=== PATIENT | female | born 1970 | race Caucasian/White ===

== ENCOUNTER 2018-10-03 15:11 | Emergency (ER) | payer BC, OTHER ==
[~2018-10-03] VITALS: Ht 165.1 cm; Wt 90.7 kg
--- OUTSIDE RECORDS SUMMARY | 2018-10-03 15:16 | XMS REPORT ---
Author Author GURU OWEN Organization [facility] Address [address] [place] [address] Care Team Providers Care Operations Staff Specialist Security Name Role Phone GURU OWEN Unavailable PROBLEMS Type Condition ICD9-CM Code [id number] Code Onset Dates Condition Status SNOMED Code Problem Mood disorder F39 Active 35762152 Problem Non morbid obesity due to excess calories E66.09 Active 043569536 ALLERGIES No Information ENCOUNTERS Encounter Location Date Diagnosis [facility] [id number] [place] [address] Nov [facility] [address] [place] [address]68- 4220 Jul, Non morbid obesity due to excess calories E66.09 [facility] [id number] [place] [address] 54462- 8833 May, Non morbid obesity due to excess calories E66.09 [place] [id number] [place] [address] 29744- 3887 Mar, Non morbid obesity due to excess calories E66.09 [facility] [address] [place] [address] 65760- 7890 February, Non morbid obesity due to excess calories E66.09 and Mood disorder F39 [facility] [address] [place] [address] 10945- 7209 February, Non morbid obesity due to excess calories E66.09 [facility] [id number] [place] [address] 72799- 4963 Jan, Non morbid obesity due to excess calories E66.09 [facility] [address] [place] [address]205[address] 0294 Dec, [place] [id number] [address] Oct, [facility] [id number] [place] [address] 56695- 1451 Aug, [facility] [address] [address] 30 Jun, 2016 ADHD (attention deficit hyperactivity disorder), inattentive type F90.0 [facility] [id number] [place] [phone] Jun, Dental caries K02.9 [facility] [id number] [place] [address] [phone] May, Dental examination Z01.20 [facility] [id number] [place] [address] 10531- 8315 May, ADHD (attention deficit hyperactivity disorder), inattentive type F90.0 [facility] [id number] [place] [address] [phone] Apr, Dental examination Z01.20 [facility] [id number] [place] [address] 38891- 6270 Apr, ADHD (attention deficit hyperactivity disorder), inattentive type F90.0 and Non morbid obesity due to excess calories E66.09 [facility] [address] [address] Apr, [facility] [address] [id number] Mar, Dental examination Z01.20 [facility] [address], [place] [address] Mar, Dental examination Z01.20 [facility] [address] [address] Mar, Attention deficit hyperactivity disorder (ADHD), predominantly inattentive type F90.0 [facility] [address], [place] [address] Mar, [facility] [id number], [place] [address] 2546 Sep, [facility] [address], [place] [address] Sep, [facility] [address] [address] Aug, [facility] [address], [place] [address] Aug, [facility] [address], [place] [address] Aug, [facility] [address] [place] [address] 43470- 2546 Aug, [facility] [address], [place] [address] May, [facility] [address] [address] 2546 May, [facility] [address] [id number], [place] [address] Apr, IMMUNIZATIONS No Known Immunizations SOCIAL HISTORY Never Assessed REASON FOR VISIT Controlled Med Refill PLAN OF CARE VITAL SIGNS MEDICATIONS Medication Instructions Dosage Frequency Start Date End Date Duration Status Phentermine HCl 37.5 MG Orally Once a day 1 tablet 24h Jan, 28 days Active RESULTS No Results PROCEDURES No Known procedures INSTRUCTIONS MEDICATIONS ADMINISTERED No Known Medications MEDICAL (GENERAL) HISTORY Type Description Date Medical History attention deficit hyperactivity disorder Surgical History tonsillectomy age 12 Surgical History cholecystectomy 2006 Hospitalization History Hospitalization for surgery only
--- OUTSIDE RECORDS SUMMARY | 2018-10-03 15:16 | XMS REPORT ---
Author Author GURU OWEN Organization [facility] Address [address] [place] [address] Care Team Providers Care Fashion Director Party Plan Sales Name Role Phone GURU OWEN Unavailable PROBLEMS Type Condition ICD9-CM Code [id number] Code Onset Dates Condition Status SNOMED Code Problem Mood disorder F39 Active 37869551 Problem Non morbid obesity due to excess calories E66.09 Active 515097066 ALLERGIES No Information ENCOUNTERS Encounter Location Date Diagnosis [facility] [address] [id number] [place] [address] Nov [facility] [id number] [place] [address] 99162- 6954 Jul, Non morbid obesity due to excess calories E66.09 [facility] [id number] [place] [address] 89399- 0827 May, Non morbid obesity due to excess calories E66.09 [place] [id number] [place] [address] 73381- 6190 Mar, Non morbid obesity due to excess calories E66.09 [facility] [address] [place] [address] 11144- 4626 February, Non morbid obesity due to excess calories E66.09 and Mood disorder F39 [facility] [address] [place] [address] 98284- 8025 February, Non morbid obesity due to excess calories E66.09 [facility] [id number] [place] [address] 74906- 6158 Jan, Non morbid obesity due to excess calories E66.09 [facility] [address] [place] [address] 98009- 3252 Dec, [place] [address], [place] [address] Oct, [facility] [id number] [place] [address] 68452- 1895 Aug, [facility] [address], [place] [address] 30 Jun, 2016 ADHD (attention deficit hyperactivity disorder), inattentive type F90.0 [facility] [id number] [place] [address] [phone] Jun, Dental caries K02.9 [facility] [id number] [place] [address] [phone] May, Dental examination Z01.20 [facility] [id number] [place] [address] 67296- 5990 May, ADHD (attention deficit hyperactivity disorder), inattentive type F90.0 [facility] [id number] [place] [address] [phone] Apr, Dental examination Z01.20 [facility] [id number] [place] [address] 49527- 8940 Apr, ADHD (attention deficit hyperactivity disorder), inattentive type F90.0 and Non morbid obesity due to excess calories E66.09 [facility] [address], [place] [address] Apr, [facility] [address] [phone] Mar, Dental examination Z01.20 [facility] [address], [place] [address] Mar, Dental examination Z01.20 [facility] [address], [place] [address] Mar, Attention deficit hyperactivity disorder (ADHD), predominantly inattentive type F90.0 [facility] [address], [place] [address] Mar, [facility] [id number] [address] 2546 Sep, [facility] [address], [place] [address] 2546 Sep, [facility] [address], [place] [address] 2546 Aug, [facility] [address], [place] [address]- 2546 Aug, [facility] [address], [place] [address] 2546 Aug, [facility] [address] [place] [address] 65633- 2546 Aug, [facility] [address], [place] [address]- 2456 May, [facility] [address], [place] [address]- 9926 May, [facility] [id number], [place] [address]- 0983 Apr, IMMUNIZATIONS No Known Immunizations SOCIAL HISTORY Never Assessed REASON FOR VISIT Controlled Med Refill PLAN OF CARE VITAL SIGNS MEDICATIONS Medication Instructions Dosage Frequency Start Date End Date Duration Status Phentermine HCl 37.5 MG Orally Once a day 1 tablet 24h Jan, Active RESULTS No Results PROCEDURES No Known procedures INSTRUCTIONS MEDICATIONS ADMINISTERED No Known Medications MEDICAL (GENERAL) HISTORY Type Description Date Medical History attention deficit hyperactivity disorder Surgical History tonsillectomy age 12 Surgical History cholecystectomy 2006 Hospitalization History Hospitalization for surgery only
--- OUTSIDE RECORDS SUMMARY | 2018-10-03 15:16 | XMS REPORT ---
Author Author CLAUDIA DONALDSON [facility] Address Unknown Care Team Providers Care Newsperson Name Role Phone CLAUDIA DONALDSON Unavailable PROBLEMS Type Condition ICD9-CM Code [id number] Code Onset Dates Condition Status SNOMED Code Problem VARICELLA DX V05.4 Active Problem Screening examination for pulmonary tuberculosis V74.1 Active 757143981 Problem STATE HEP A (ADULT) DX V05.3 Active 191196618 Assessment Dental caries K02.9 Jun, Active 65357052 Problem Need for prophylactic vaccination and inoculation, Influenza V04.81 Active 881301453 Problem MMR DX V06.4 Active ALLERGIES Substance Reaction Event Type Date Status Penicillin V Potassium Unknown Drug Allergy Jun, Active SOCIAL HISTORY No smoking Hx information available PLAN OF CARE VITAL SIGNS Blood pressure systolic 123 mmHg 2016-07-03 Blood pressure diastolic 84 mmHg 2016-07-03 MEDICATIONS Medication Instructions Dosage Frequency Start Date End Date Duration Status Adderall 30 MG Orally 2 times a day 1 tablet 12h 20 Mar, 2016 Active RESULTS No Results PROCEDURES Procedure Date Ordered Related Diagnosis Body Site EXTRAC ERUPTED TOOTH/EXPOSED ROOT Jul 03, 2016 IMMUNIZATIONS No Known Immunizations
--- OUTSIDE RECORDS SUMMARY | 2018-10-03 15:16 | XMS REPORT ---
Author Author CLAUDIA DONALDSON [facility] Address Unknown Care Team Providers Care Cream Cheese Maker Name Role Phone CLAUDIA DONALDSON Unavailable PROBLEMS Type Condition ICD9-CM Code VLG90-UT Code Onset Dates Condition Status SNOMED Code Problem VARICELLA DX V05.4 Active Problem Screening examination for pulmonary tuberculosis V74.1 Active 592076101 Problem STATE HEP A (ADULT) DX V05.3 Active 752424757 Assessment Dental examination Z01.20 May, Active 403820113 Problem Need for prophylactic vaccination and inoculation, Influenza V04.81 Active 026974838 Problem MMR DX V06.4 Active ALLERGIES Substance Reaction Event Type Date Status Penicillin V Potassium Unknown Drug Allergy May, Active SOCIAL HISTORY No smoking Hx information available PLAN OF CARE VITAL SIGNS Height 65 in 2016-06-21 Blood pressure systolic 112 mmHg 2016-06-21 Blood pressure diastolic 80 mmHg 2016-06-21 MEDICATIONS Medication Instructions Dosage Frequency Start Date End Date Duration Status Dupont 5-325 MG Orally every 6 hrs 1 tablet as needed 6h May, May, 4 days Active Adderall 30 MG Orally 2 times a day 1 tablet 12h 20 Mar, 2016 Active RESULTS No Results PROCEDURES Procedure Date Ordered Related Diagnosis Body Site PULPAL DEBRID PRIMARY Jun 21, 2016 IMMUNIZATIONS No Known Immunizations
--- OUTSIDE RECORDS SUMMARY | 2018-10-03 15:17 | XMS REPORT ---
Author Author GURU OWEN [facility] Address [address] [place] [address] Care Team Providers Care Lead Miner Name Role Phone UGRU OWEN Unavailable PROBLEMS Type Condition ICD9-CM Code [id number] Code Onset Dates Condition Status SNOMED Code Problem Mood disorder F39 Active 40344147 Problem Non morbid obesity due to excess calories E66.09 Active 827414708 ALLERGIES Substance Reaction Event Type Date Status Penicillin V Potassium Unknown Drug Allergy February, Active SOCIAL HISTORY Never Assessed PLAN OF CARE VITAL SIGNS Height 65 in 2017-03-20 Weight 219.8 lbs 2017-03-20 Temperature 97.8 degrees Fahrenheit 2017-03-20 Heart Rate 88 bpm 2017-03-20 Respiratory Rate 18 2017-03-20 BMI 36.57 kg/m2 2017-03-20 Blood pressure systolic 150 mmHg 2017-03-20 Blood pressure diastolic 90 mmHg 2017-03-20 MEDICATIONS Medication Instructions Dosage Frequency Start Date End Date Duration Status Phentermine HCl 37.5 MG Orally Once a day 1 tablet 24h Jan, Active Wellbutrin SR 150 MG Orally Twice a day 1 tablet 12h Jan, 30 day(s) Active RESULTS No Results PROCEDURES No Known procedures IMMUNIZATIONS No Known Immunizations MEDICAL (GENERAL) HISTORY Type Description Date Medical History attention deficit hyperactivity disorder Surgical History tonsillectomy age 12 Surgical History cholecystectomy 2006 Hospitalization History Hospitalization for surgery only
--- OUTSIDE RECORDS SUMMARY | 2018-10-03 15:17 | XMS REPORT ---
Author GURU Morales Organization [employer] Address Unknown Phone Unavailable Care Team Providers Care Lone Lead Lineman Name Role Phone GURU OWEN CP Unavailable Allergies No Known Allergies Problems Problem Type Condition Code Onset Dates Condition Status Problem Screening examination for pulmonary tuberculosis V74.1 Active Problem Need for prophylactic vaccination and inoculation, Influenza V04.81 Active Problem VARICELLA DX V05.4 Active Problem MMR DX V06.4 Active Problem STATE HEP A (ADULT) DX V05.3 Active Medications Medication Code System Code Instructions Start Date End Date Status Dosage Adderall [facility] [address]-90 30 MG Orally 2 times a day April 15, 2016 1 tablet Results No Known Results Summary Purpose [employer] Submission
--- OUTSIDE RECORDS SUMMARY | 2018-10-03 15:17 | XMS REPORT ---
Author GURU Morales Organization [employer] Address Unknown Phone Unavailable Care Team Providers Care Continuous Conveyor Screen Drier Name Role Phone GURU OWEN CP Unavailable [...] Instructions Start Date End Date Status Dosage Amoxicillin [facility] [address]-99 500 MG Orally every 12 hrs May 09, 2016 May 19, 2016 2 capsules Results No Known Results Summary Purpose [employer] Submission
--- OUTSIDE RECORDS SUMMARY | 2018-10-03 15:17 | XMS REPORT ---
Author Author GURU OWEN [facility] Address [address] [place] [address] Care Team Providers Care Registered Nurse Supervisor Name Role Phone GURU OWEN Unavailable PROBLEMS Type Condition ICD9-CM Code [id number] Code Onset Dates Condition Status SNOMED Code Problem Mood disorder F39 Active 53475994 Problem Non morbid obesity due to excess calories E66.09 Active 916199929 ALLERGIES Unknown Allergies SOCIAL HISTORY No smoking Hx information available PLAN OF CARE VITAL SIGNS MEDICATIONS Medication Instructions Dosage Frequency Start Date End Date Duration Status Adderall 30 MG Orally 2 times a day 1 tablet 12h Oct, 28 days Active RESULTS No Results PROCEDURES No Known procedures IMMUNIZATIONS No Known Immunizations
--- OUTSIDE RECORDS SUMMARY | 2018-10-03 15:17 | XMS REPORT ---
Author GURU Morales Organization [employer] Address Unknown Phone Unavailable Care Team Providers Care Motor Coach Bus Driver Name Role Phone GURU OWEN CP Unavailable Allergies, Adverse Reactions, Alerts Substance Reaction Event Type Penicillin V Potassium Info Not Available Drug Allergy Problems Problem Type Condition Code Onset Dates Condition Status Problem Screening examination for pulmonary tuberculosis V74.1 Active Problem Need for prophylactic vaccination and inoculation, Influenza V04.81 Active Problem VARICELLA DX V05.4 Active Assessment ADHD (attention deficit hyperactivity disorder), inattentive type F90.0 Active Problem MMR DX V06.4 Active Problem STATE HEP A (ADULT) DX V05.3 Active Medications Medication Code System Code Instructions Start Date End Date Status Dosage Adderall [facility] [address]-02 30 MG Orally 2 times a day April 15, 2016 1 tablet Procedures Procedure Coding System Code Date Office Visit, Est Pt., Level 3 CPT-4 45474 Jun 17, 2016 Vital Signs Date/Time: Jun 17, 2016 Cardiac Monitoring Heart Rate 76 bpm Weight 198.3 lbs Height 65 in BMI 33.00 Index Blood Pressure Diastolic 90 mmHg Blood Pressure Systolic 124 mmHg Results No Known Results Summary Purpose [employer] Submission
--- OUTSIDE RECORDS SUMMARY | 2018-10-03 15:17 | XMS REPORT ---
Author Author GURU OWEN [facility] Address [address] [place] [address] Care Team Providers Care Interactive Account Manager Name Role Phone GURU OWEN Unavailable PROBLEMS Type Condition ICD9-CM Code QWP29-CI Code Onset Dates Condition Status SNOMED Code Problem Mood disorder F39 Active 39759100 Problem Non morbid obesity due to excess calories E66.09 Active 496641115 ALLERGIES No Information SOCIAL HISTORY Never Assessed PLAN OF CARE VITAL SIGNS MEDICATIONS Medication Instructions Dosage Frequency Start Date End Date Duration Status Adderall 30 MG Orally 2 times a day 1 tablet 12h 13 Dec, 2016 28 days Active RESULTS No Results PROCEDURES No Known procedures IMMUNIZATIONS No Known Immunizations MEDICAL (GENERAL) HISTORY Type Description Date Medical History attention deficit hyperactivity disorder Surgical History tonsillectomy age 12 Surgical History cholecystectomy 2006 Hospitalization History Hospitalization for surgery only
--- OUTSIDE RECORDS SUMMARY | 2018-10-03 15:18 | XMS REPORT | Continuity of Care Document ---
Author Author [facility] Address Unknown Phone Unavailable Allergies There is no data. Medications There is no data. Problems Date Dx Coded Attending Type Code Diagnosis Diagnosed By 01/17/2011 V06.5 DT, TETANUS- DIPHTHERIA [Td] ,TDAP 01/17/2011 VERNA GUTIÉRREZ DO V06.5 DT, TETANUS-DIPHTHERIA [Td] ,TDAP 05/22/2012 V05.3 HEP B (ADULT) DX 05/22/2012 VERNA GUTIÉRREZ DO V05.3 HEP B (ADULT) DX 05/27/2012 V05.4 VARICELLA DX 05/27/2012 VERNA GUTIÉRREZ DO V05.4 VARICELLA DX 08/27/2012 V04.81 FLU DX (3 YRS AND ABOVE, IM) 08/27/2012 V74.1 TB SCREENING 08/27/2012 VERNA GUTIÉRREZ DO V04.81 FLU DX (3 YRS AND ABOVE, IM) 08/27/2012 VERNA GUTIÉRREZ DO V74.1 TB SCREENING 10/02/2012 V06.4 MMR DX Procedures Code [place] [address] TB TEST INTRADERMAL 08/27/2012 16491 TB TEST INTRADERMAL 09/16/2012 Results There is no data. Encounters ACCT No. Visit Date/Time Discharge Status Pt. Type Provider Facility Loc./Unit Complaint [id number] 10/02/2012 15:35:00 10/02/2012 23:59:59 CLS Outpatient [id number] 08/27/2012 14:04:00 08/27/2012 23:59:59 CLS Outpatient VERNA GUTIÉRREZ DO
--- OUTSIDE RECORDS SUMMARY | 2018-10-03 15:18 | XMS REPORT ---
Author Author GURU OWEN [facility] Address [address] [place] [address] Care Team Providers Care Delivery Table Operator Name Role Phone GURU OWEN Unavailable PROBLEMS Type Condition ICD9-CM Code FNZ68-ZS Code Onset Dates Condition Status SNOMED Code Problem Mood disorder F39 Active 50270802 Problem Non morbid obesity due to excess calories E66.09 Active 007746388 ALLERGIES No Information SOCIAL HISTORY Never Assessed [...]
--- OUTSIDE RECORDS SUMMARY | 2018-10-03 15:18 | XMS REPORT ---
Author GURU Morales Organization [employer] Address Unknown Phone Unavailable Care Team Providers Care Bathhouse Keeper Name Role Phone GURU OWEN CP Unavailable [...] deficit hyperactivity disorder), inattentive type F90.0 Active Assessment Non morbid obesity due to excess calories E66.09 Active Problem MMR DX V06.4 Active Problem STATE HEP A (ADULT) DX V05.3 Active Medications Medication Code System Code Instructions Start Date End Date Status Dosage Adderall [facility] [address]-33 30 MG Orally 2 times a day April 15, 2016 1 tablet Procedures Procedure Coding System Code Date Office Visit, Est Pt., Level 3 CPT-4 68394 May 17, 2016 Vital Signs Date/Time: May 17, 2016 Cardiac Monitoring Heart Rate 84 bpm Weight 197.2 lbs Height 65 in Blood Pressure Diastolic 80 mmHg Blood Pressure Systolic 110 mmHg Results No Known Results Summary Purpose [employer] Submission
--- OUTSIDE RECORDS SUMMARY | 2018-10-03 15:18 | XMS REPORT ---
Author Author GURU OWEN Organization [facility] [place] Address [address] [place] [address] Care Team Providers Care Cloth Bin Packer Name Role Phone GURU OWEN Unavailable PROBLEMS Type Condition ICD9-CM Code ABY25-WL Code Onset Dates Condition Status SNOMED Code Problem Mood disorder F39 Active 10558547 Problem Non morbid obesity due to excess calories E66.09 Active [id number] ALLERGIES No Information ENCOUNTERS Encounter Location Date Diagnosis [facility] [id number] [place] [address] Nov [facility] [place] [id number] [place] [address] Jul, Non morbid obesity due to excess calories E66.09 [facility] [place] [id number] [place] [address] May, Non morbid obesity due to excess calories E66.09 [place] [id number] [place] [address] Mar, Non morbid obesity due to excess calories E66.09 [facility] [place] [id number] [place] [address] February, Non morbid obesity due to excess calories E66.09 and Mood disorder F39 [facility] [place] [address] [place] [address] February, Non morbid obesity due to excess calories E66.09 [facility] [place] [id number] [place] [address] Jan, Non morbid obesity due to excess calories E66.09 [facility] [place] [address] [place] [phone] Dec, [place] [id number], [place] [address] Oct, [facility] [place] [id number] [place] [address] Aug, [facility] [place] [address], [place] [address] Jun, 2016 ADHD (attention deficit hyperactivity disorder), inattentive type F90.0 [facility] [id number] [place] [phone] Jun, Dental caries K02.9 [facility] [id number] [place] [phone] May, Dental examination Z01.20 [facility] [place] [id number] [place] [address] May, ADHD (attention deficit hyperactivity disorder), inattentive type F90.0 [facility] [id number] [place] [phone] Apr, Dental examination Z01.20 [facility] [place] [id number] [place] [address] Apr, ADHD (attention deficit hyperactivity disorder), inattentive type F90.0 and Non morbid obesity due to excess calories E66.09 [facility] [place] [address] [address] Apr, [facility] [id number] [id number] Mar, Dental examination Z01.20 [facility] [place] [address] [address] Mar, Dental examination Z01.20 [facility] [place] [address], [place] [address] Mar, Attention deficit hyperactivity disorder (ADHD), predominantly inattentive type F90.0 [facility] [place] [address] [place] [address] Mar, [facility] [place] [id number] [address] Sep, [facility] [place] [address], [place] [address] Sep, [facility] [place] [address] [place] [address] Aug, [facility] [place] [address] [place] [address] Aug, [facility] [place] [address] [place] [address] Aug, [facility] [place] [address] [place] [address] Aug, [facility] [place] [address], [place] [address] May, [facility] [place] [address], [place] [address] May, [facility] [place] [id number] [address] Apr, IMMUNIZATIONS No Known Immunizations SOCIAL HISTORY [...]
--- OUTSIDE RECORDS SUMMARY | 2018-10-03 15:18 | XMS REPORT ---
Author Author CLAUDIA DONALDSON eClinicalWorks Address Unknown Phone Unavailable Care Team Providers Care Anthropology Department Chair Name Role Phone CLAUDIA DONALDSON CP Unavailable Allergies, Adverse Reactions, Alerts Substance Reaction Event Type Penicillin V Potassium Info Not Available Drug Allergy Problems Problem Type Condition Code Onset Dates Condition Status Problem Screening examination for pulmonary tuberculosis V74.1 Active Problem Need for prophylactic vaccination and inoculation, Influenza V04.81 Active Problem VARICELLA DX V05.4 Active Assessment Dental examination Z01.20 Active Problem MMR DX V06.4 Active Problem STATE HEP A (ADULT) DX V05.3 Active Medications Medication Code System Code Instructions Start Date End Date Status Dosage Adderall [facility] [address]-24 30 MG Orally 2 times a day April 15, 2016 1 tablet Azithromycin [facility] [address]-89 250 MG Orally Once a day May 24, 2016 May 29, 2016 2 tablets on the first day, then 1 tablet daily for 4 days Procedures Procedure Coding System Code Date LTD ORAL EVALUATION - PROBLEM FOCUS CPT-4 D0140 May 24, 2016 Vital Signs Date/Time: May 24, 2016 Blood Pressure Diastolic 74 mmHg Blood Pressure Systolic 109 mmHg Height 65 in Results No Known Results Summary Purpose eClinicalWorks Submission
[2018-10-03] MEDS ORDERED: fentaNYL INJECTION 100 MCG/2 ML AMP ONE (15:24)
[2018-10-03] MEDS ORDERED: METR-197 PO (15:28)
[2018-10-03] MEDS ORDERED: HYDR-4226 PO (15:28)
[2018-10-03] MEDS ORDERED: CIPR-225 PO (15:28)
--- NOTE | 2018-10-03 15:28 | ED Integumentary General ---
General Chief Complaint: Bite-Animal/Human/Insect Stated Complaint: R ARM DOG BITE Source: patient Exam Limitations: no limitations History of Present Illness Date Seen by Provider: Oct 03, 2018 Time Seen by Provider: 15:25 Initial Comments To ER with a bite to the right forearm by her own dog, agreed changes prior to arrival. The dog is up-to-date on vaccinations. She has not had her own tetanus vaccination in over 5 years. Timing/Duration: just prior to arrival Severity: moderate Location: extremities Possible Cause: other Allergies and Home Medications Allergies Coded Allergies: Penicillins (Verified Allergy, Unknown, 10/03/18) Home Medications Ciprofloxacin HCl 500 Mg Tablet, 500 MG PO BID Prescribed by: GAYLA MURDOCK on 10/03/18 1528 Hydrocodone/Acetaminophen 1 Each Tablet, 1 EACH PO Q6H PRN for PAIN-MODERATE Prescribed by: GAYLA MURDOCK on 10/03/18 1528 Metronidazole 500 Mg Tablet, 500 MG PO TID Prescribed by: GAYLA MURDOCK on 10/03/18 1528 Patient Home Medication List Home Medication List Reviewed: Yes Review of Systems Review of Systems Constitutional: see HPI EENTM: see HPI Respiratory: no symptoms reported Cardiovascular: no symptoms reported Genitourinary: no symptoms reported Musculoskeletal: see HPI Skin: see HPI Psychiatric/Neurological: No Symptoms Reported Endocrine: No Symptoms Reported Past Grxemur-Pqqeic-Kndahn Hx Patient Social History Recent Foreign Travel: No Contact w/Someone Who Travel: No Physical Exam Vital Signs Capillary Refill : General Appearance: WD/WN, no apparent distress HEENT: PERRL/EOMI, normal ENT inspection Neck: non-tender, full range of motion Respiratory: no respiratory distress, no accessory muscle use Neurologic/Psychiatric: alert, normal mood/affect, oriented x 3 Skin: normal color, warm/dry Skin Problem Location: upper extremities (to the radial side of the forearm on the right there is a large laceration gaping by about 1 cm with depth down to the muscle. She maintains the ability to give thumbs up, extend the wrist and fingers individually and flex the wrist and fingers individually. She has normal sensation of all of the fingers.) Procedures/Interventions Wound Location: Upper Extremities Other Wound Location There are 2 separate lacerations to the radial side of the forearm. One measures 9 cm and is as deep as down to the muscle fascia. There is a more proximal 1 cm laceration with depth to the subcutaneous tissues. The skin was anesthetized with a total of 7 mL of 1% lidocaine without epinephrine. Wound was then copiously irrigated with 750 mL of mixture of chlorhexidine and normal saline using a 50 cc syringe. No foreign bodies were identified. Due to the gaping nature of these wounds, the larger 9 cm laceration was closed with 4 buried sutures size 4-0 Vicryl. The skin was then loosely brought together with a total of 6 simple interrupted sutures size 4-0 Ethilon. The more proximal 1 cm laceration was closed with 1 single simple interrupted suture size 4-0 Vicryl. Wounds were then covered with oil emulsion dressing, nonadherent gauze then gauze roll. She is allergic to penicillins so we will use fluoroquinolone plus metronidazole for antibiotic prophylaxis. Do expect quite a bit of drainage from these wounds so she will be sent home with material to change this. Wound's Depth, Shape: linear Wound Explored: clean Irrigated w/ Saline (ccs): 750 Anesthesia: 1% Lidocaine Suture: Ethlion, Vicryl Suture Size: 4-0 Number of Sutures: 10 Layer Closure?: 2 Number Deep Layer Sutures: 3 Progress/Results/Core Measures Results/Orders My Orders Orders - GAYLA MURDOCK APRN Ciprofloxacin Tablet (Cipro Tablet) (10/03/18 15:30) Metronidazole Tablet (Flagyl Tablet) (10/03/18 15:30) Fentanyl Injection (Sublimaze Injection (10/03/18 15:30) Tetanus/Diphtheria Inj (Adult) (Tenivac (10/03/18 15:30) Lidocaine 1% Inj 20 Ml (Xylocaine 1% Inj (10/03/18 15:30) Iv Heplock-Insert (Order) (10/03/18 15:22) Fentanyl Injection (Sublimaze Injection (10/03/18 15:24) Medications Given in ED Current Medications Medications Dose Ordered Sig/[place] Route Start Time Stop Time Status Last Admin Dose Admin Fentanyl Citrate 50 mcg ONCE ONCE IVP 10/03/18 15:30 12 15:31 DC 10/03/18 15:30 50 MCG Lidocaine HCl 5 ml ONCE ONCE INJ 10/03/18 15:30 12 15:31 DC 10/03/18 15:37 5 ML Metronidazole 500 mg ONCE ONCE PO 10/03/18 15:30 10/03/18 15:31 DC 10/03/18 15:37 500 MG Tetanus/ Diphtheria Toxoids 0.5 ml ONCE ONCE IM 10/03/18 15:30 10/03/18 15:31 DC 10/03/18 15:38 0.5 ML Departure Impression Primary Impression: Dog bite Qualified Codes: W54.0XXA - Bitten by dog, initial encounter Disposition: 01 HOME, SELF-CARE Condition: Stable Departure-Patient Inst. Decision time for Depature: 15:27 Referrals: NO,LOCAL PHYSICIAN (PCP/Family) Primary Care Physician Patient Instructions: Animal Bites (DC) Add. Discharge Instructions: 1. Return to the emergency room to have the stitches removed in about 10 days. Take antibiotics as directed. Pain medication as directed. Return to ER for any concerns before then. Return to the emergency room for wound check Friday afternoon or evening (no charge). Keep this wound clean dry and covered in the meantime. Use a trash bag over the arm to keep this dry while showering for at least the first week . All discharge instructions reviewed with patient and/or family. Voiced understanding. Scripts Metronidazole (Metronidazole) 500 Mg Tablet 500 MG PO TID, #21 TAB Prov: GAYLA MURDOCK APRN 10/03/18 Ciprofloxacin HCl (Cipro) 500 Mg Tablet 500 MG PO BID, #14 TAB Prov: GAYLA MURDOCK APRN 10/03/18 Hydrocodone/Acetaminophen ([place] 5-325 Tablet) 1 Each Tablet 1 EACH PO Q6H PRN for PAIN-MODERATE MDD 10, #14 TAB Prov: GAYLA MURDOCK APRN 10/03/18 GAYLA MURDOCK APRN Oct 03, 2018 15:28
[2018-10-03] MEDS ORDERED: fentaNYL INJECTION 100 MCG/2 ML AMP IVP ONE (15:30)
[2018-10-03] MEDS ORDERED: CIPROFLOXACIN 500 MG (CIPRO) TABLET PO SCH (15:30)
[2018-10-03] MEDS ORDERED: metroNIDAZOLE 500 MG (FLAGYL) TAB PO ONE (15:30)
[2018-10-03] MEDS ORDERED: LIDOCAINE 1% INJ 20 ML 20 ML VIAL INJ ONE (15:30)
[2018-10-03] MEDS ORDERED: TETANUS & DIPHTHERIA TOX,ADULT 0.5 ML (TENIVAC) IM ONE (15:30)
[2018-10-03 16:20] VITALS: BP 146/91
== END 2018-10-03 16:20 | disposition home or self-care (01) ==
LOC: EDUNIT# 15:11 → ER 15:12
DX: S51.851A Open bite of right forearm, initial encounter (principal); Z88.0 Allergy status to penicillin; Z23 Encounter for immunization; W54.0XXA Bitten by dog, initial encounter
CPT/HCPCS: 90714; 99284

== ENCOUNTER 2018-10-07 16:41 | Emergency (ER) | payer BC ==
[~2018-10-07] VITALS: Ht 165.1 cm; Wt 89.4 kg
[~2018-10-07 16:41] MED LIST: CIPR-225 PO; HYDR-4226 PO; METR-197 PO
--- OUTSIDE RECORDS SUMMARY | 2018-10-07 16:50 | XMS REPORT | Continuity of Care Document ---
Author Author [facility] Address Unknown Phone Unavailable Allergies Active Description Code Type Severity Reaction Onset Reported/Identified Relationship to Patient Clinical Status Yes Penicillins [id number] Drug Allergy Unknown N/A 10/03/2018 Medications There is no data. Problems Date [...] V74.1 TB SCREENING 10/02/2012 V06.4 MMR DX 10/03/2018 GAYLA MURDOCK APRN Ot S51.851A OPEN BITE OF RIGHT FOREARM, INITIAL ENCO 10/03/2018 GAYLA MURDOCK APRN Ot W54.0XXA BITTEN BY DOG, INITIAL ENCOUNTER 10/03/2018 GAYLA MURDOCK APRN Ot Z23 ENCOUNTER FOR IMMUNIZATION 10/03/2018 GAYLA MURDOCK APRN Ot Z88.0 ALLERGY STATUS TO PENICILLIN 10/06/2018 GAYLA MURDOCK APRN Ot S51.851A OPEN BITE OF RIGHT FOREARM, INITIAL ENCO 10/06/2018 GAYLA MURDOCK APRN Ot W54.0XXA BITTEN BY DOG, INITIAL ENCOUNTER 10/06/2018 GAYLA MURDOCK APRN Ot Z23 ENCOUNTER FOR IMMUNIZATION 10/06/2018 GAYLA MURDOCK APRN Ot Z88.0 ALLERGY STATUS TO PENICILLIN Procedures Code [place] [address] TB TEST INTRADERMAL 08/27/2012 16571 TB TEST INTRADERMAL 09/16/2012 Results There is no data. Encounters ACCT No. Visit Date/Time Discharge Status Pt. Type Provider Facility Loc./Unit Complaint [id number] 10/02/2012 15:35:00 10/02/2012 23:59:59 CLS Outpatient [id number] 08/27/2012 14:04:00 08/27/2012 23:59:59 CLS Outpatient VERNA GUTIÉRREZ DO [id number] 10/03/2018 15:12:00 10/03/2018 16:20:00 DIS Emergency GAYLA MURDOCK APRN [facility] ER R ARM DOG BITE [id number] 10/07/2018 16:46:00 ACT Emergency CAROLINA MAR, YODIT Agarwal [facility] ER WOUND CHECK
--- NOTE | 2018-10-07 17:20 | ED Suture Removal/Wound Check ---
Suture/Wound Re-check General Appearance: WD/WN, no apparent distress Skin Exam: normal color, warm/dry Physical Exam Vital Signs Vital Signs - First Documented 10/07/18 17:00 Pulse 91 Resp 16 B/P (MAP) 140/69 Pulse Ox 98 Capillary Refill : General Appearance: WD/WN, no apparent distress Cardiovascular: normal peripheral pulses, regular rate, rhythm, no edema, no gallop, no JVD, no murmur Respiratory: chest non-tender, lungs clear, normal breath sounds, no respiratory distress, no accessory muscle use Skin: normal color, warm/dry Skin Problem Location: other (sutures remain intact to the healing laceration to the right dorsal forearm. There is no redness, drainage, severe pain to indicate furthering infection.) Skin Problem Character: other Departure Impression Primary Impression: Visit for wound check Disposition: HOME, SELF-CARE Condition: Stable/Unchanged Departure-Patient Inst. Decision time for Depature: 17:20 Referrals: NO,LOCAL PHYSICIAN (PCP/Family) Primary Care Physician Patient Instructions: Wound Care (DC) Add. Discharge Instructions: Watch for signs of infection such as increased redness, swelling, drainage, pain. Continue to have the sutures removed in 6 days. Return back to the emergency room for suture removal. Follow-up primary care as needed. All discharge instructions reviewed with patient and/or family. Voiced understanding. ANA MAYER Oct 07, 2018 17:20
[2018-10-07 17:30] VITALS: BP 122/87
== END 2018-10-07 17:29 | disposition home or self-care (01) ==
LOC: EDUNIT# 16:41 → ER 16:46
DX: S51.811D Laceration without foreign body of right forearm, subsequent encounter (principal); X58.XXXD Exposure to other specified factors, subsequent encounter

== ENCOUNTER → 2021-04-09 | Outpatient (CLI) | payer BC ==
[~2021-04-09] MED LIST changes: +METR-145 PO; -METR-197 PO
--- NOTE | 2021-04-09 10:27 | Diagnostic Imaging Report ---
INDICATION: Cough and wheezing PA and lateral chest Heart size and pulmonary vascularity are normal. Lungs are clear. There are no effusions or pneumothoraces. IMPRESSION: Negative chest Dictated by: Dictated on workstation # [id number]
== END ==
LOC: RAD 10:01
PROVIDERS: ATTEND Family Medicine
DX: R05 Cough (principal); R06.2 Wheezing
CPT/HCPCS: 71046